=== PATIENT | female | born 1945 | race Caucasian/White ===

== ENCOUNTER 2023-03-06 08:11 | Day surgery (SDC) | payer OTHER, BC, MEDICARE ==
[2023-02-23 17:15] VITALS: BMI 26.4
[2023-03-06] MEDS ORDERED: VANCOMYCIN 1 GM in D5W (PRE-DOCKED) 1,000 MG/250 ML (RESTRICTED TO ID ONLY IVPB ONE ×2 (09:00→23:00)
[2023-03-06] MEDS ORDERED: CLINDAMYCIN IVPB 300 MG in DEXTROSE 5%-WATER - 50 ML IVPB ONE (09:00)
[2023-03-06] MEDS ORDERED: ceFAZolin 2 GRAM PREMIX BAG IVPB ONE (09:00)
[2023-03-06] MEDS ORDERED: BUPIVACAINE LIPOSOME/PF (EXPAREL) 266 MG/20 ML VIAL ONE (09:39)
[2023-03-06] MEDS ORDERED: VANCOMYCIN 1,000 MG VIAL (RESTRICTED TO ID ONLY) ONE ×2 (09:40→10:25)
[2023-03-06] MEDS ORDERED: BUPIVACAINE HCL/PF 0.5% (5MG/ML) 10 ML VIAL ONE (09:40)
[2023-03-06] MEDS ORDERED: SODIUM CHLORIDE 0.9% P/F 10 ML VIAL IJ ONE (09:40)
[2023-03-06] MEDS ORDERED: ONDANSETRON 4 MG/2 ML VIAL ONE ×2 (10:24→12:33)
[2023-03-06] MEDS ORDERED: MIDAZOLAM HCL 2 MG/2 ML SINGLE DOSE VIAL ONE (10:24)
[2023-03-06] MEDS ORDERED: DEXAMETHASONE SOD PHOSPHATE 4 MG/1 ML VIAL ONE ×2 (10:24→12:33)
[2023-03-06] MEDS ORDERED: TRANEXAMIC ACID 1000 MG/10 ML VIAL IVPUSH ONE (10:30)
[2023-03-06] MEDS ORDERED: TRANEXAMIC ACID 1000 MG/10 ML VIAL ONE ×2 (10:57→12:18)
[2023-03-06] MEDS ORDERED: ceFAZolin SODIUM 1 GM VIAL ONE (10:57)
[2023-03-06] MEDS ORDERED: BUPIVICAINE 0.25%/MORPH PF/KETOROLAC - 51ML DISP.SYRINGE IA ONE (12:26)
[2023-03-06] MEDS ORDERED: ACETAMINOPHEN 1000 MG/100 ML BAG IVPB ONE (13:18)
[2023-03-06] MEDS ORDERED: oxyCODONE HCL 5 MG TABLET PO PRN (13:18)
[2023-03-06] MEDS ORDERED: ONDANSETRON 4 MG/2 ML VIAL IVPUSH PRN ×2 (13:18→13:39)
[2023-03-06] MEDS ORDERED: LACTATED RINGERS SOLUTION 1,000 ML IV SCH (13:30)
[2023-03-06] MEDS ORDERED: MAGNESIUM HYDROX 2400MG/30ML ORAL SUSPENSION 30 ML CUP PO PRN (13:39)
[2023-03-06] MEDS ORDERED: MAG HYDROX/AL HYDROX/SIMETH 30 ML UNIT-DOSE CUP PO PRN (13:39)
[2023-03-06] MEDS ORDERED: ACETAMINOPHEN INJECTION 100 ML IVPB ONE (14:45)
[2023-03-06] MEDS: oxyCODONE HCL 5 MG TABLET PO PRN ×2 (17:02→22:08)
[2023-03-06] MEDS ORDERED: ACETAMINOPHEN 500 MG TABLET (FP) PO SCH (17:30)
[2023-03-06] MEDS ORDERED: CEFAZOLIN SODIUM 2 GM in DEXTROSE 5%-WATER 100 ML IVPB SCH (18:00)
[2023-03-06] MEDS: CEFAZOLIN SODIUM 2 GM in DEXTROSE 5%-WATER 100 ML IVPB SCH (18:46)
[2023-03-06] MEDS: SENNOSIDES/DOCUSATE COMBO (SENNA PLUS) TABLET (UD) PO SCH (21:26)
[2023-03-06] MEDS: ACETAMINOPHEN 500 MG TABLET (FP) PO SCH (21:26)
[2023-03-06] MEDS: GABAPENTIN 300 MG CAPSULE PO SCH (21:27)
[2023-03-06] MEDS ORDERED: LOSARTAN POTASSIUM 50 MG TABLET PO SCH (22:00)
[2023-03-06] MEDS ORDERED: NORTRIPTYLINE HCL 25 MG CAPSULE PO SCH (22:00)
[2023-03-07] MEDS: CEFAZOLIN SODIUM 2 GM in DEXTROSE 5%-WATER 100 ML IVPB SCH ×2 (02:16→09:26)
[2023-03-07] MEDS: oxyCODONE HCL 5 MG TABLET PO PRN (06:12)
[2023-03-07] MEDS: ACETAMINOPHEN 500 MG TABLET (FP) PO SCH ×2 (06:12→13:51)
[2023-03-07 08:29] LABS: HEMATOCRIT 34.1 % (32.4-45.2); HEMOGLOBIN 11.7 G/dL (10.7-15.3); MCH 31.4 pg (25.7-33.7); MCHC 34.4 g/dl (32.0-36.0); MEAN CELL VOLUME 91.4 fl (80-96); MEAN PLT VOLUME 8.7 fl (7.5-11.1); PLATELET COUNT 199.4 10^3/uL (134-434); RBC 3.73 10^6/uL (3.60-5.2); RDW 13.1 % (11.6-15.6); WHITE BLOOD COUNT 12.9 10^3/uL (4.0-10.8)
[2023-03-07 08:31] LABS: CALCIUM 8.2 mg/dl (8.5-10); CREATININE 0.9 mg/dl (0.55-1.3)
[2023-03-07] MEDS: GABAPENTIN 300 MG CAPSULE PO SCH (09:21)
[2023-03-07] MEDS: SENNOSIDES/DOCUSATE COMBO (SENNA PLUS) TABLET (UD) PO SCH (09:22)
[2023-03-07] MEDS ORDERED: VERAPAMIL HCL 180 MG E.R. TABLET PO SCH (10:00)
[2023-03-07] MEDS ORDERED: MULTIVITAMINS (DAILY MVI) TABLET (FP) PO SCH (10:00)
[2023-03-07] MEDS ORDERED: ASPIRIN 325 MG TABLET PO SCH (10:00)
[2023-03-07] MEDS ORDERED: ARIPiprazole 15 MG TABLET PO SCH (10:00)
[2023-03-07] MEDS ORDERED: PANTOPRAZOLE 40 MG TABLET PO SCH (10:00)
[2023-03-07 14:42] VITALS: BP 133/61; PULSE 65; RESP 17; TEMP 98.4
== END 2023-03-07 19:28 | disposition home or self-care (01) ==
LOC: FASUSAT 08:11 → FM/S 15:28 → FASUSAT 03-07 19:28
PROVIDERS: ATTEND Internal Medicine
PROC: 8E0Y0CZ Robotic Assisted Procedure of Lower Extremity, Open Approach (ICD-10-PCS; 2023-03-06)
PROC: 0SRC0JA Replacement of Right Knee Joint with Synthetic Substitute, Uncemented, Open Approach (ICD-10-PCS; principal; 2023-03-06 11:18)
DX: M17.11 Unilateral primary osteoarthritis, right knee (principal)
CPT/HCPCS: 20985; 27447; C1776; S2900; 36415; 73560-TC-RT-FY; 80048; 85027; 88305-TC; 88311-TC; 94760; 97010-GP; 97116-GP; 97162-GP

== ENCOUNTER 2023-03-29 13:59 | Emergency (ER) | payer OTHER, BC, MEDICARE ==
[2023-03-29 16:21] VITALS: BP 159/68; PULSE 57; RESP 18; TEMP 98.7; BMI 26.6
[2023-03-29] MEDS ORDERED: ACETAMINOPHEN 325 MG TABLET (FP) PO ONE (16:29)
[2023-03-29] MEDS ORDERED: ACETAMINOPHEN 325 MG TABLET (FP) ONE (17:04)
== END 2023-03-29 19:11 | disposition home or self-care (01) ==
LOC: FER 13:59
DX: M25.561 Pain in right knee (principal); T84.092A Other mechanical complication of internal right knee prosthesis, initial encounter; Y83.1 Surgical operation with implant of artificial internal device as the cause of abnormal reaction of the patient, or of later complication, without mention of misadventure at the time of the procedure
CPT/HCPCS: 73552-TC-RT-FY; 73562-TC-RT-FY; 76882-TC-RT; 99284-25

== ENCOUNTER 2023-04-06 09:32 | Inpatient (IN) | payer OTHER, BC, MEDICARE ==
[2023-04-06 10:03] VITALS: BMI 26.6
[2023-04-06] MEDS ORDERED: ACETAMINOPHEN 1000 MG/100 ML BAG IVPB ONE (10:11)
[2023-04-06] MEDS ORDERED: ACETAMINOPHEN INJECTION 100 ML IVPB ONE (10:44)
[2023-04-06 10:52] LABS: HEMATOCRIT 35.8 % (32.4-45.2); HEMOGLOBIN 11.9 G/dL (10.7-15.3); MCHC 33.2 g/dl (32.0-36.0); MEAN CELL VOLUME 93.1 fl (80-96); MEAN PLT VOLUME 8.6 fl (7.5-11.1); PLATELET COUNT 284.1 10^3/uL (134-434); RBC 3.84 10^6/uL (3.60-5.2); RDW 14.1 % (11.6-15.6); WHITE BLOOD COUNT 11.7 10^3/uL (4.0-10.8)
[2023-04-06 10:53] LABS: INR 1.06 (0.83-1.09); PROTHROMBIN TIME (PATIENT) 12.2 SEC (9.7-13.0)
[2023-04-06 10:56] LABS: ACTIVATED PTT 26.1 SECONDS (25.2-36.5)
[2023-04-06 10:57] LABS: PLATELET ESTIMATE ADEQUATE
[2023-04-06 10:59] LABS: ALBUMIN 3.3 g/dl (3.4-5.0); CALCIUM 9.1 mg/dl (8.5-10); CREATININE 0.9 mg/dl (0.55-1.3); POTASSIUM 3.9 mmol/L (3.5-5.1); TOT PROT 5.8 g/dl (6.4-8.2)
[2023-04-06] MEDS: ALPRAZolam 0.25 MG TABLET PO SCH ×2 (13:33→21:10)
[2023-04-06] MEDS: LOSARTAN POTASSIUM 50 MG TABLET PO SCH (21:10)
[2023-04-06] MEDS: NORTRIPTYLINE HCL 25 MG CAPSULE PO SCH (21:10)
[2023-04-06] MEDS ORDERED: ACETAMINOPHEN 1000 MG/100 ML BAG IVPB PRN (22:00)
[2023-04-07 03:41] LABS: EPI CELLS >36 /uL (0-25.1); HYALINE CASTS 5 /uL (0-3.1); PH,URINE 5.5 (5.0-8.0); URINE APPEARANCE CLOUDY; URINE BACTERIA 55 /uL (0-1359); URINE BILIRUBIN NEGATIVE (NEGATIVE); URINE COLOR YELLOW; URINE GLUCOSE (UA) NEGATIVE (NEGATIVE); URINE KETONE NEGATIVE (NEGATIVE); URINE LEUK ESTERASE 1+ (NEGATIVE); URINE NITRITE NEGATIVE (NEGATIVE); URINE PROTEIN NEGATIVE (NEGATIVE); URINE RBC 50 /uL (0-23.9); URINE UROBILINOGEN 0.2 mg/dL (0.2-1.0); URINE WBC 293 /uL (0-25.8)
[2023-04-07] MEDS: ALPRAZolam 0.25 MG TABLET PO SCH ×3 (06:18→21:25)
[2023-04-07 08:17] LABS: INR 1.14 (0.83-1.09); PROTHROMBIN TIME (PATIENT) 13.1 SEC (9.7-13.0)
[2023-04-07 08:32] LABS: CALCIUM 8.4 mg/dl (8.5-10); CREATININE 0.8 mg/dl (0.55-1.3); POTASSIUM 3.6 mmol/L (3.5-5.1)
[2023-04-07] MEDS ORDERED: MIDAZOLAM HCL 2 MG/2 ML SINGLE DOSE VIAL ONE (08:50)
[2023-04-07] MEDS ORDERED: PROPOFOL 20 ML ONE (08:50)
[2023-04-07] MEDS: HYDROCHLOROTHIAZIDE 25 MG TABLET (FP) PO SCH (09:06)
[2023-04-07] MEDS: ARIPiprazole 15 MG TABLET PO SCH (09:06)
[2023-04-07] MEDS: ATENOLOL 50 MG TABLET (FP) PO SCH (09:06)
[2023-04-07] MEDS: VERAPAMIL HCL 180 MG E.R. TABLET PO SCH (09:06)
[2023-04-07] MEDS ORDERED: ROPIVACAINE HCL 0.5% 30ML VIAL ONE (09:26)
[2023-04-07] MEDS ORDERED: BUPIVACAINE HCL/PF 0.5% (5MG/ML) 10 ML VIAL ONE (09:38)
[2023-04-07] MEDS ORDERED: VANCOMYCIN 1,000 MG VIAL (RESTRICTED TO ID ONLY) ONE ×2 (09:46→10:31)
[2023-04-07] MEDS ORDERED: ONDANSETRON 4 MG/2 ML VIAL IVPUSH PRN (09:59)
[2023-04-07] MEDS ORDERED: oxyCODONE HCL 5 MG TABLET PO PRN ×2 (09:59)
[2023-04-07] MEDS ORDERED: ACETAMINOPHEN INJECTION 100 ML IVPB ONE (10:01)
[2023-04-07 10:30] LABS: BASO % 0.4 % (0-2.0); EOS % 2.3 % (0-4.5); HEMATOCRIT 28.6 % (32.4-45.2); HEMOGLOBIN 9.7 GM/dL (10.7-15.3); LYMPH % 18.9 % (8-40); MCH 30.3 pg (25.7-33.7); MCHC 34.1 g/dl (32.0-36.0); MEAN CELL VOLUME 88.9 fl (80-96); MONO % 8.6 % (3.8-10.2); NEUT % 69.8 % (42.8-82.8); PLATELET COUNT 228 10^3/uL (134-434); RBC 3.21 M/mm3 (3.60-5.2); RDW 13.3 % (11.6-15.6); WHITE BLOOD COUNT 8.3 K/mm3 (4.0-10.0)
[2023-04-07] MEDS ORDERED: ceFAZolin SODIUM 1 GM VIAL ONE (10:31)
[2023-04-07] MEDS ORDERED: TRANEXAMIC ACID 1000 MG/10 ML VIAL ONE (10:57)
[2023-04-07] MEDS ORDERED: BUPIVICAINE 0.25%/MORPH PF/KETOROLAC - 51ML DISP.SYRINGE IA ONE ×2 (11:32→12:23)
[2023-04-07] MEDS ORDERED: ceFAZolin 2 GRAM PREMIX BAG IVPB SCH (13:15)
[2023-04-07] MEDS: LACTATED RINGERS SOLUTION 1,000 ML IV SCH (14:44)
[2023-04-07] MEDS: CEFAZOLIN SODIUM 2 GM in DEXTROSE 5%-WATER 100 ML IVPB SCH ×2 (14:44→21:26)
[2023-04-07] MEDS: LOSARTAN POTASSIUM 50 MG TABLET PO SCH (21:24)
[2023-04-07] MEDS: NORTRIPTYLINE HCL 25 MG CAPSULE PO SCH (21:25)
[2023-04-07] MEDS ORDERED: ASPIRIN 81 MG CHEWABLE TABLETS PO SCH (22:00)
[2023-04-07] MEDS ORDERED: VANCOMYCIN 1 GM/200 ML PREMIX BAG (RESTRICTED TO ID ONLY) IVPB ONE (22:15)
[2023-04-08] MEDS ORDERED: ACETAMINOPHEN 325 MG TABLET (FP) PO ONE (01:15)
[2023-04-08] MEDS: CEFAZOLIN SODIUM 2 GM in DEXTROSE 5%-WATER 100 ML IVPB SCH (04:57)
[2023-04-08] MEDS: ALPRAZolam 0.25 MG TABLET PO SCH ×2 (07:01→13:52)
[2023-04-08] MEDS ORDERED: oxyCODONE HCL 5 MG TABLET PO PRN (07:44)
[2023-04-08] MEDS: ACETAMINOPHEN 1000 MG/100 ML BAG IVPB PRN ×2 (07:54→14:17)
[2023-04-08 09:13] LABS: CALCIUM 8.1 mg/dl (8.5-10); CREATININE 0.9 mg/dl (0.55-1.3); POTASSIUM 3.9 mmol/L (3.5-5.1)
[2023-04-08] MEDS: VERAPAMIL HCL 180 MG E.R. TABLET PO SCH (10:39)
[2023-04-08] MEDS: ASPIRIN 81 MG CHEWABLE TABLETS PO SCH ×2 (10:39→22:18)
[2023-04-08] MEDS: ATENOLOL 50 MG TABLET (FP) PO SCH (10:39)
[2023-04-08] MEDS: HYDROCHLOROTHIAZIDE 25 MG TABLET (FP) PO SCH (10:39)
[2023-04-08] MEDS: ARIPiprazole 15 MG TABLET PO SCH (10:39)
[2023-04-08] MEDS: LACTATED RINGERS SOLUTION 1,000 ML IV SCH (10:40)
[2023-04-08 12:01] LABS: BASO % 0.4 % (0-2.0); EOS % 3.1 % (0-4.5); HEMATOCRIT 26.3 % (32.4-45.2); HEMOGLOBIN 9.1 GM/dL (10.7-15.3); LYMPH % 9.1 % (8-40); MCH 30.9 pg (25.7-33.7); MCHC 34.5 g/dl (32.0-36.0); MEAN CELL VOLUME 89.8 fl (80-96); MEAN PLT VOLUME 9.1 fl (7.5-11.1); MONO % 8.7 % (3.8-10.2); NEUT % 78.7 % (42.8-82.8); PLATELET COUNT 200 10^3/uL (134-434); RBC 2.93 M/mm3 (3.60-5.2); RDW 12.8 % (11.6-15.6); WHITE BLOOD COUNT 9.2 K/mm3 (4.0-10.0)
[2023-04-08] MEDS: NORTRIPTYLINE HCL 25 MG CAPSULE PO SCH (22:18)
[2023-04-08] MEDS: LOSARTAN POTASSIUM 50 MG TABLET PO SCH (22:18)
[2023-04-09] MEDS: ALPRAZolam 0.25 MG TABLET PO SCH ×4 (02:49→22:16)
[2023-04-09] MEDS ORDERED: ACETAMINOPHEN 325 MG TABLET (FP) PO PRN (08:02)
[2023-04-09] MEDS: ARIPiprazole 15 MG TABLET PO SCH (09:39)
[2023-04-09] MEDS: HYDROCHLOROTHIAZIDE 25 MG TABLET (FP) PO SCH (09:40)
[2023-04-09] MEDS: VERAPAMIL HCL 180 MG E.R. TABLET PO SCH (09:40)
[2023-04-09] MEDS: ATENOLOL 50 MG TABLET (FP) PO SCH (09:41)
[2023-04-09] MEDS: POLYETHYLENE GLYCOL (HEALTHYLAX) 3350 17 GM PACKET PO SCH (09:41)
[2023-04-09] MEDS: ASPIRIN 81 MG CHEWABLE TABLETS PO SCH ×2 (09:41→21:09)
[2023-04-09] MEDS: LACTATED RINGERS SOLUTION 1,000 ML IV SCH (09:42)
[2023-04-09] MEDS ORDERED: ACETAMINOPHEN 1000 MG/100 ML BAG IVPB PRN (09:58)
[2023-04-09 18:14] VITALS: RESP 18
[2023-04-09] MEDS: NORTRIPTYLINE HCL 25 MG CAPSULE PO SCH (21:08)
[2023-04-09] MEDS: LOSARTAN POTASSIUM 50 MG TABLET PO SCH (21:09)
[2023-04-10] MEDS: ALPRAZolam 0.25 MG TABLET PO SCH (06:16)
[2023-04-10 08:47] LABS: CALCIUM 8.4 mg/dl (8.5-10); CREATININE 0.7 mg/dl (0.55-1.3); PHOSPHOROUS 2.9 mg/dl (2.5-4.9); POTASSIUM 3.6 mmol/L (3.5-5.1)
[2023-04-10] MEDS: HYDROCHLOROTHIAZIDE 25 MG TABLET (FP) PO SCH (09:26)
[2023-04-10] MEDS: VERAPAMIL HCL 180 MG E.R. TABLET PO SCH (09:26)
[2023-04-10] MEDS: ASPIRIN 81 MG CHEWABLE TABLETS PO SCH (09:27)
[2023-04-10] MEDS: ATENOLOL 50 MG TABLET (FP) PO SCH (09:27)
[2023-04-10] MEDS: LACTATED RINGERS SOLUTION 1,000 ML IV SCH (09:28)
[2023-04-10] MEDS: POLYETHYLENE GLYCOL (HEALTHYLAX) 3350 17 GM PACKET PO SCH (09:28)
[2023-04-10] MEDS: ARIPiprazole 15 MG TABLET PO SCH (09:28)
[2023-04-10 09:29] LABS: BASO % 0.3 % (0-2.0); EOS % 3.6 % (0-4.5); HEMATOCRIT 24.5 % (32.4-45.2); HEMOGLOBIN 8.7 GM/dL (10.7-15.3); LYMPH % 14.2 % (8-40); MCH 31.3 pg (25.7-33.7); MCHC 35.4 g/dl (32.0-36.0); MEAN CELL VOLUME 88.3 fl (80-96); MEAN PLT VOLUME 7.8 fl (7.5-11.1); MONO % 9.6 % (3.8-10.2); NEUT % 72.3 % (42.8-82.8); PLATELET COUNT 223 10^3/uL (134-434); RBC 2.77 M/mm3 (3.60-5.2); RDW 13.2 % (11.6-15.6); WHITE BLOOD COUNT 6.7 K/mm3 (4.0-10.0)
[2023-04-10 13:16] VITALS: BP 146/68; PULSE 82; TEMP 98.4
== END 2023-04-10 15:30 | DRG 501 ==
LOC: FER 09:32 → FM/S 10:20
PROVIDERS: ADMIT Internal Medicine; ATTEND Internal Medicine
PROC: 0LQL0ZZ Repair Right Upper Leg Tendon, Open Approach (ICD-10-PCS; principal; 2023-04-07 10:52)
DX: S76.121A Laceration of right quadriceps muscle, fascia and tendon, initial encounter (principal); I47.1 Supraventricular tachycardia; W01.0XXA Fall on same level from slipping, tripping and stumbling without subsequent striking against object, initial encounter; Y93.89 Activity, other specified; Y92.89 Other specified places as the place of occurrence of the external cause; Y99.8 Other external cause status
CPT/HCPCS: 36415; 71045-TC-FY; 80048; 80053; 81003; 83735; 84100; 85025; 85027; 85610; 85730; 86850; 86900; 86901; 93005; 94760; 97116-GP; 97161-GP; 99285-25; C1713; C9803-CS; U0003; U0005